=== PATIENT | female | born 1960 | race Caucasian/White ===

== ENCOUNTER 2020-04-09 19:17 | Outpatient (REF) | payer BC, SELFPAY ==
[2020-04-09 20:01] LABS: Bilirubin Negative (Negative); Blood Negative (Negative); Clarity Clear (Clear); Glucose Negative (Negative); Ketones Negative (Negative); Leukocyte Esterase Trace (Negative); Nitrite Negative (Negative); Urobilinogen 0.2 EU/dL (Up TO 0.2)
[2020-04-09 20:11] LABS: Bacteria Few HPF (Negative); Casts Negative LPF (Negative); Crystals Negative HPF (Negative); Epithelial Cells Few HPF (Negative); Mucus Negative (Negative); RBC 0-2 HPF (0-2)
[2020-04-09 20:12] LABS: C & S Indicated? Yes
== END 2020-04-09 19:37 ==
LOC: NCHCN 19:17
PROVIDERS: PCP Family Medicine; Visit Provider Family Medicine
DX: R31.29 Other microscopic hematuria (principal)
CPT/HCPCS: 81003; 81015; 87086

== ENCOUNTER 2024-11-03 17:58 | Outpatient (REF) | payer BC, SELFPAY ==
[2024-11-03 20:16] LABS: HCT 43.9 % (36.0-46.0); HGB 14.7 g/dL (11.2-15.7); MCH 29.9 pg (27.0-33.0); MCHC 33.5 % (32.0-36.0); MCV 89 fL (80-95); MPV 10.7 fL (8.0-11.0); Platelet Count 389 10^3/uL (130-400); RBC 4.91 10^6/uL (3.93-5.22); RDW 13.8 % (11.7-14.6); RDW-SD 45.1 fL; WBC 6.08 10^3/uL (4.4-10.8)
[2024-11-03 20:37] LABS: Anion Gap 8.9 mmol/L (3-11); BUN 9 mg/dL (7-18); CO2 27.1 mmol/L (21.0-32.0); CREATININE 0.6 mg/dL (0.55-1.02); Calcium 9.2 mg/dL (8.5-10.1); Calculated LDL 113 mg/dL (<100); Chloride 102 mmol/L (98-107); Cholesterol 212 mg/dL (<200); Glucose 92 mg/dL (74-106); HDL Cholesterol 37 mg/dL (>or=50); Potassium 3.9 mmol/L (3.5-5.1); Sodium 138 mmol/L (136-145); TSH 2.13 uIU/mL (0.36-3.74); Triglyceride 310 mg/dL (<150)
[2024-11-15 12:51] LABS: 25-Hydroxy D Total 33 ng/mL; 25-Hydroxy D2 <4.0 ng/mL; 25-Hydroxy D3 33 ng/mL
== END 2024-11-03 17:59 | disposition home or self-care (01) ==
LOC: NCHCN 17:58
PROVIDERS: PCP Family Medicine; Visit Provider Family Medicine
DX: Z00.00 Encounter for general adult medical examination without abnormal findings (principal); R10.9 Unspecified abdominal pain; M81.0 Age-related osteoporosis without current pathological fracture
CPT/HCPCS: 80048; 80061; 82306; 85027; 84443